=== PATIENT | female | born 1975 | race African-American/Black ===

== ENCOUNTER 2017-06-16 07:23 | Emergency (ER) | payer BC ==
[~2017-06-16] VITALS: Ht 160 cm; Wt 83.0 kg
[~2017-06-16 07:23] MED LIST: Z.0.NO CURRENT MEDS
[2017-06-16 07:24] VITALS: BP 130/91; PULSE 75; RESP 16; TEMP 98.6; O2SAT 96
[2017-06-16] MEDS ORDERED: IBUP1TAB7 PO (07:39)
[2017-06-16] MEDS ORDERED: ROBA500T PO (07:39)
--- NOTE | 2017-06-16 07:40 | PD ---
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 Denies encopresis, incontinence, saddle anesthesias. Denies paresthesias, loss of sensation, any decreased range of motion, decreased strength to bilateral lower extremities. Denies radiation of pain. Denies IV drug use. Denies fever, vomiting, abdominal pain, dysuria, urinary frequency. Has taken Percocet and Flexeril for symptom management. Has not tried any other treatments to alleviate symptoms. Pain is aggravated with twisting and movement. Rates pain 7/10 and describes an ache. Allergies to acetaminophen, cephalexin, oxycodone. Dr. Nguyen is primary care provider. Denies significant past medical history. Has no other medical complaints. No other modifying factors or associated signs and symptoms. PFSH Past Medical History Diminished Hearing: No Reproductive: Yes (FIBROIDS) Integumentary: Yes (ECZEMA) : 4 Para: 4 Miscarriage: 1 Tubal Ligation: Yes Past Surgical History Section: Yes Social History Alcohol Use: No Tobacco Use: Yes (06/23 PPD) Substance Use: No Allergies-Medications (Allergen,Severity, Reaction): Coded Allergies: cephalexin (Unverified Allergy, Intermediate, YEAST INFECTION, 02/02/17) acetaminophen (Unverified Adverse Reaction, Intermediate, NAUSEA, 02/02/17) oxycodone (Unverified Adverse Reaction, Intermediate, NAUSEA, 02/02/17) Reported Meds & Prescriptions Reported Meds & Active Scripts Active Ibuprofen 800 Mg Tab 800 Mg PO Q6HR PRN Robaxin (Methocarbamol) 500 Mg Tab 500 Mg PO QID PRN Reported No Current Meds (Miscellaneous Medication) Misc Review of Systems Except as stated in HPI: all other systems reviewed are Neg Physical Exam Narrative GENERAL: Well-nourished, well-developed black female patient, in no acute distress; afebrile, nontoxic-appearing SKIN: Warm and dry. HEAD: Atraumatic. Normocephalic. EYES: Pupils equal and round. No scleral icterus. No injection or drainage. ENT: Mucosa pink and moist. Airway patent. NECK: Trachea midline. CARDIOVASCULAR: Regular rate. RESPIRATORY: No accessory muscle use. GASTROINTESTINAL: Rounded. MUSCULOSKELETAL: Bilateral lower extremities supple and non-tense with 2+ pedal pulses and sensory intact; with full range of motion and 5/5 strength. 2 + DTRs bilaterally. Active dorsiflexion and extension of bilateral feet. Bilateral straight leg raise is negative for low back pain. Ambulatory in room with normal gait. Sitting up in bed at 90. No obvious deformities. No clubbing. No cyanosis. No edema. BACK: No midline point tenderness on palpation of the lumbar spine. Tenderness on palpation of right lumbar iliosacral area. No obvious deformities. NEUROLOGICAL: Awake and alert. Oriented 3. No obvious cranial nerve deficits. Motor grossly within normal limits. Normal speech. Moves all extremities. 5/5 strength to all extremities. Sensory intact. PSYCHIATRIC: Appropriate mood and affect; insight and judgment normal. Data Data Last Documented VS Vital Signs Date Time Temp Pulse Resp B/P (MAP) Pulse Ox O2 Delivery O2 Flow Rate FiO2 06/16/17 07:24 98.6 75 16 130/91 (104) 96 Room Air Orders Orders Ketorolac Inj (Toradol Inj) (06/16/17 07:45) Orphenadrine Inj (Norflex Inj) (06/16/17 07:45) MDM Medical Decision Making Medical Screen Exam Complete: Yes Emergency Medical Condition: Yes Medical Record Reviewed: Yes Differential Diagnosis Low back strain, muscle spasm, low back pain Narrative Course 41-year-old female with right-sided low back strain. Denies encopresis, incontinence, saddle anesthesias. Denies IV drug use or cancer. No midline tenderness on palpation of the lumbar spine. Patient is ambulatory in the room with a normal gait. Neuro exam unremarkable. Toradol and Norflex ordered. Robaxin and ibuprofen prescribed for home. Instructed patient to follow up with primary care provider. Patient verbalizes understanding and agreement with treatment plan. Patient is medically cleared and stable for discharge. Discussed reasons to return to the emergency department. Patient agrees with treatment plan. The patients vital signs are stable and the patient is stable for outpatient follow-up and treatment. Patient discharged home, stable and in no acute distress. Diagnosis Primary Impression: Low back strain Qualified Codes: S39.012A - Strain of muscle, fascia and tendon of lower back , initial encounter Referrals: Primary Care Physician Patient Instructions: General Instructions, Low Back Strain (ED), Muscle Spasm (ED) Departure Forms: Tests/Procedures, Work Release Enter return to work date: Jun 17, 2017 Additional Instructions: Tylenol or ibuprofen as directed and as needed for pain Robaxin as prescribed and as needed for muscle spasms Heating pad and/or ice to affected area to reduce pain Avoid aggravating activities; increase activity as tolerated Follow-up with primary care provider Return to emergency department immediately with worsening of symptoms Med/Other Pt SpecificInfo: Prescription(s) given Scripts Ibuprofen (Ibuprofen) 800 Mg Tab 800 MG PO Q6HR Y for PAIN, #30 TAB 0 Refills Prov: Carol Martinez 06/16/17 Methocarbamol (Robaxin) 500 Mg Tab 500 MG PO QID Y for MUSCLE SPASM, #30 TAB 0 Refills Prov: Carol Martinez 06/16/17 Disposition: 01 DISCHARGE HOME Condition: Stable Carol Martinez Jun 16, 2017 07:40
[2017-06-16] MEDS ORDERED: ORPHENADRINE INJ 60 MG/2 ML AMP IM ONE (07:45)
[2017-06-16] MEDS ORDERED: KETOROLAC TROMETHAMINE 60 MG/2 ML (IM) VIAL IM ONE (07:45)
== END 2017-06-16 08:10 | disposition home or self-care (01) ==
LOC: NEPD 07:23
DX: S39.012A Strain of muscle, fascia and tendon of lower back, initial encounter (principal); F17.200 Nicotine dependence, unspecified, uncomplicated; X50.0XXA Overexertion from strenuous movement or load, initial encounter; Y93.F9 Activity, other caregiving
CPT/HCPCS: 96372; 99283; J1885; J2360

== ENCOUNTER 2017-11-16 22:04 | Emergency (ER) | payer BC ==
[~2017-11-16 22:04] MED LIST changes: +IBUP1TAB7 PO; +ROBA500T PO; -Z.0.NO CURRENT MEDS
[2017-11-16 22:07] VITALS: BP 141/84; PULSE 104; RESP 17; TEMP 99; O2SAT 99
--- NOTE | 2017-11-16 22:43 | RADRPT ---
EXAM DATE: 11/16/2017 10:33 PM EDT AGE/SEX: 41 years / Female INDICATIONS: Pain in right foot from twisting ankle walking down stairs. Pain all over foot. CLINICAL DATA: This is the patient's initial encounter. Patient reports that signs and symptoms have been present for 1 day and indicates a pain score of 3/10. MEDICAL/SURGICAL HISTORY: None. None. COMPARISON: No prior [facility] exams available for comparison. FINDINGS: Bony structures are intact and in normal alignment. Osseous density is normal. Soft tissues are unre markable. No radiopaque foreign bodies seen. CONCLUSION: No acute fracture or joint dislocation. Electronically signed by: Reji Williamson MD 11/16/2017 10:42 PM EDT
--- NOTE | 2017-11-16 22:45 | RADRPT ---
EXAM DATE: 11/16/2017 10:31 PM EDT AGE/SEX: 41 years / Female INDICATIONS: Twisted ankle walking down stairs. CLINICAL DATA: This is the patient's initial encounter. Patient reports that signs and symptoms have been present for 1 day and indicates a pain score of 4/10. MEDICAL/SURGICAL HISTORY: None. None. COMPARISON: No prior [facility] exams available for comparison. FINDINGS: Soft tissue swelling lateral malleolus. Anatomic alignment. No fracture. Talus intact. CONCLUSION: Soft tissue swelling lateral malleolus, no fracture Electronically signed by: Dung Lagos MD 11/16/2017 10:43 PM EDT
[2017-11-16] MEDS ORDERED: FOLI400T PO (23:19)
[2017-11-16] MEDS ORDERED: VITA200013 (23:19)
[2017-11-16] MEDS ORDERED: IBUP1TAB7 PO (23:57)
--- NOTE | 2017-11-16 23:57 | PD ---
HPI Chief Complaint: Injury Time Seen by Provider: 23:20 Travel History International Travel<30 days: No Contact w/Intl Traveler<30days: No Traveled to known affect area: No History of Present Illness HPI Patient is a 41-year-old female presenting to the emergency department for evaluation of right ankle pain and right foot pain. Patient states she was walking when she rolled her ankle at approximately 6 PM this evening. Patient reports her pain is a 7 out of 10, aching and throbbing, constant but worse with ambulation. She has no other injuries to report. Symptom onset was sudden , symptoms are moderate in nature. There are no alleviating factors. Patient denies any numbness, weakness in her extremities. PFSH Past Medical History Anemia: Yes Diminished Hearing: No Reproductive: Yes (FIBROIDS) Integumentary: Yes (ECZEMA) Immunizations Current: No ?: Not : 4 Para: 4 Miscarriage: 1 Tubal Ligation: Yes Past Surgical History Section: Yes (X 1) Gynecologic Surgery: Yes Hysterectomy: Yes (2017) Social History Alcohol Use: Yes (OCC) Tobacco Use: Yes (QUIT 2014) Substance Use: No Allergies-Medications (Allergen,Severity, Reaction): Coded Allergies: cephalexin (Unverified Allergy, Intermediate, YEAST INFECTION, 11/16/17) acetaminophen (Unverified Adverse Reaction, Intermediate, NAUSEA, 11/16/17) oxycodone (Unverified Adverse Reaction, Intermediate, NAUSEA, 11/16/17) Reported Meds & Prescriptions Reported Meds & Active Scripts Active Ibuprofen 800 Mg Tab 800 Mg PO Q6HR PRN Robaxin (Methocarbamol) 500 Mg Tab 500 Mg PO QID PRN Reported Folic Acid 0.4 Mg Tab 400 Mcg PO DAILY Vitamin D (Cholecalciferol) 2,000 Unit Cap Review of Systems Except as stated in HPI: all other systems reviewed are Neg Musculoskeletal: Positive: Myalgias, Arthralgias, Edema, Pain Physical Exam Narrative GENERAL: Well-developed, well-nourished, alert -[place] female. Presenting in no acute distress. SKIN: Warm and dry. HEAD: Atraumatic. Normocephalic. EYES: Pupils equal and round. No scleral icterus. No injection or drainage. ENT: No nasal bleeding or discharge. Mucous membranes pink and moist. NECK: Trachea midline. No JVD. CARDIOVASCULAR: Regular rate and rhythm. RESPIRATORY: No accessory muscle use. Clear to auscultation. Breath sounds equal bilaterally. GASTROINTESTINAL: Abdomen soft, non-tender, nondistended. Hepatic and splenic margins not palpable. MUSCULOSKELETAL: Extremities without clubbing, cyanosis. Mild edema to the lateral aspect of the right ankle. No obvious deformities. 2+ dorsalis pedal pulse. Full range of motion in toes. NEUROLOGICAL: Awake and alert. No obvious cranial nerve deficits. Motor grossly within normal limits. Five out of 5 muscle strength in the arms and legs. Normal speech. Data Data Last Documented VS Vital Signs Date Time Temp Pulse Resp B/P (MAP) Pulse Ox O2 Delivery O2 Flow Rate FiO2 11/16/17 23:20 Room Air 11/16/17 22:07 99.0 104 17 141/84 (103) 99 Orders Orders Ice/Cold Pack (11/16/17 22:09) Ankle, Complete ([id number]) (11/16/17 22:09) Foot, Complete ([id number]) (11/16/17 22:09) [facility] Medical Decision Making Medical Screen Exam Complete: Yes Emergency Medical Condition: Yes Interpretation(s) Last Impressions Foot X-Ray 11/16/172208 Signed Impressions: CONCLUSION: No acute fracture or joint dislocation. Ankle X-Ray 11/16/172208 Signed Impressions: CONCLUSION: Soft tissue swelling lateral malleolus, no fracture Vital Signs Date Time Temp Pulse Resp B/P (MAP) Pulse Ox O2 Delivery O2 Flow Rate FiO2 11/16/17 23:20 Room Air 11/16/17 22:07 99.0 104 17 141/84 (103) 99 Differential Diagnosis Sprain versus strain versus fracture versus other Narrative Course Patient is well-appearing 41-year-old female presenting for evaluation of right ankle and foot pain after sustaining a mechanical injury at 6 PM this evening. Patient has no focal deficits on exam. She is neurovascularly intact. Her vital signs are stable. Imaging of the right ankle and foot show no acute abnormalities, there is soft tissue swelling to the lateral malleolus on the right. Patient be placed in Georges bandage given crutches for support. She is encouraged to rest, ice, elevate extremity. She is encouraged anti- inflammatory medication as needed and as directed for pain. She is further encouraged to increase weightbearing as tolerated. Patient verbalized understanding of these instructions. Patient stable for discharge. Diagnosis Primary Impression: Right ankle sprain Qualified Codes: S93.401A - Sprain of unspecified ligament of right ankle, initial encounter Referrals: Orthopaedic Surgeon Primary Care Physician Patient Instructions: Ankle Sprain (ED), Ankle Sprain Exercises (GEN), General Instructions Additional Instructions: Follow-up with your primary doctor Rest, ice, elevate extremity Increase weightbearing as tolerated Take medications as directed Follow-up with orthopedic surgeon if symptoms do not improve with conservative management Return to emergency department for any new worsening symptoms Med/Other Pt SpecificInfo: Prescription(s) given Scripts Ibuprofen (Ibuprofen) 800 Mg Tab 800 MG PO Q6HR Y for PAIN, #40 TAB 0 Refills Prov: Alaina Yung 11/16/17 Disposition: 01 DISCHARGE HOME Condition: Stable Alaina Yung November 16, 2017 23:57
[2017-11-17] MEDS ORDERED: traMADol HCL 50 MG TAB PO ONE
== END 2017-11-17 00:31 | disposition home or self-care (01) ==
LOC: NEPD 22:04
DX: S93.401A Sprain of unspecified ligament of right ankle, initial encounter (principal); X50.9XXA Other and unspecified overexertion or strenuous movements or postures, initial encounter; Y93.01 Activity, walking, marching and hiking
CPT/HCPCS: 73610; 73630; 99283